=== PATIENT | female | born 1995 | race Caucasian/White ===

== ENCOUNTER → 2019-01-04 14:12 | Outpatient (CLI) | payer OTHER, SELFPAY ==
[2019-01-04 10:47] VITALS: BMI 35.4
== END ==
PROVIDERS: Family Provider Family Medicine; PCP Family Medicine; Referring Provider Physician Assistant Surgical; Visit Provider Physician Assistant Surgical
DX: J02.9 Acute pharyngitis, unspecified (principal)
CPT/HCPCS: 87081

== ENCOUNTER → 2020-08-02 | Outpatient (CLI) | payer OTHER, SELFPAY ==
[2020-08-02 12:15] VITALS: BMI 34.5
== END | disposition home or self-care (01) ==
PROVIDERS: PCP Family Medicine; Referring Provider Nurse Practitioner Family; Visit Provider Nurse Practitioner Family
DX: J20.9 Acute bronchitis, unspecified (principal)
CPT/HCPCS: 87070; 87077

== ENCOUNTER → 2020-10-07 | Outpatient (CLI) | payer OTHER, SELFPAY ==
[2020-10-07 08:16] VITALS: BMI 34.5
[2020-10-09 03:07] LABS: Chlamydia By Nucleic Acid AMP Negative (Negative)
[2020-10-09 08:28] LABS: Gonococcus By Nucleic Acid AMP Negative (Negative)
[2020-10-10 15:17] LABS: HPV Reflexed? NOT INDICATED
== END | disposition home or self-care (01) ==
LOC: LABSPEC 13:07
PROVIDERS: PCP Family Medicine; Visit Provider Nurse Practitioner Women's Health
DX: Z12.4 Encounter for screening for malignant neoplasm of cervix (principal); Z11.3 Encounter for screening for infections with a predominantly sexual mode of transmission; N89.8 Other specified noninflammatory disorders of vagina
CPT/HCPCS: 87070; 87205; 87491; 87591; 88175; G0145

== ENCOUNTER → 2020-10-09 14:53 | Outpatient (CLI) | payer OTHER, SELFPAY ==
[2020-10-07 08:16] VITALS: BMI 34.5
--- NOTE | 2020-10-09 14:55 | US_ITS ---
STUDY: ULTRASOUND TRANSVAGINAL CLINICAL: Female, 25 years old. pain TECHNIQUE: Transvaginal COMPARISON: None. FINDINGS: Normal uterine size measuring 7.6 cm in maximal craniocaudal dimension. There are no myometrial masses. Normal endometrial thickness measuring 10 mm. There are no endometrial masses, and there is no fluid in the endometrial cavity. Normal uterine cervix. The right ovary measures 5.0 x 5.1 x 3.8 cm with a 4.2 x 4.6 x 3.2 cm simple cyst. Normal DOPPLER flow. No adnexal masses. The left ovary is 2.9 x 3.4 x 2.5 cm with normal DOPPLER flow. There are no left adnexal masses. Mild free fluid of the pelvis. Unremarkable urinary bladder. US/Pelvic (Non ) IMPRESSION: 4.2 x 4.6 x 3.2 cm simple cyst of the right ovary with mild free fluid of the pelvis. Normal DOPPLER flow. Normal uterus and left ovary with no additional adnexal masses. Electronically Signed: Janet Peterson MD at 16:29 EDT , Service support ,
--- NOTE | 2020-10-09 14:55 | US_ITS ---
STUDY: ULTRASOUND TRANSVAGINAL CLINICAL: Female, 25 years old. pain TECHNIQUE: Transvaginal COMPARISON: None. FINDINGS: Normal uterine size measuring 7.6 cm in maximal craniocaudal dimension. There are no myometrial masses. Normal endometrial thickness measuring 10 mm. There are no endometrial masses, and there is no fluid in the endometrial cavity. Normal uterine cervix. The right ovary measures 5.0 x 5.1 x 3.8 cm with a 4.2 x 4.6 x 3.2 cm simple cyst. Normal DOPPLER flow. No adnexal masses. The left ovary is 2.9 x 3.4 x 2.5 cm with normal DOPPLER flow. There are no left adnexal masses. Mild free fluid of the pelvis. Unremarkable urinary bladder. US/Transvaginal Non- IMPRESSION: 4.2 x 4.6 x 3.2 cm simple cyst of the right ovary with mild free fluid of the pelvis. Normal DOPPLER flow. Normal uterus and left ovary with no additional adnexal masses. Electronically Signed: Janet Peterson MD at 16:29 EDT , Service support ,
== END ==
PROVIDERS: PCP Family Medicine; Referring Provider Nurse Practitioner Women's Health; Visit Provider Nurse Practitioner Women's Health
DX: N83.291 Other ovarian cyst, right side (principal); R10.2 Pelvic and perineal pain
CPT/HCPCS: 76830; 76856; 93976

== ENCOUNTER → 2020-11-06 16:25 | Outpatient (CLI) | payer OTHER, SELFPAY ==
[2020-10-07 08:16] VITALS: BMI 34.5
--- NOTE | 2020-11-06 16:28 | US_ITS ---
HISTORY: cyst-F/U EXAMINATION: US Transvaginal Non-OB TECHNIQUE: Transvaginal (for optimal evaluation of the adnexa) pelvic ultrasound was performed. Grayscale, spectral waveform, and color flow Doppler evaluation of the adnexa. COMPARISON: 10/09/2020 FINDINGS: UTERUS: Anteverted uterus 7.0 x 5.4 x 4.0 cm with normal myometrial appearance. Homogeneous 12 mm endometrial stripe. RIGHT OVARY: 3.5 x 2.4 x 1.6 cm. Multiple normal small follicles. Preserved Doppler vascular flow. LEFT OVARY: 3.3 x 4.7 x 2.8 cm. Complex 2.2 cm physiologic cyst. Preserved Doppler vascular flow. FREE FLUID: Small volume anechoic cul-de-sac free fluid. BLADDER: Anechoic. Volume 55 mL. US/Transvaginal Non- IMPRESSION: Left ovarian 2.2 cm complex physiologic cyst. Interval resolution of previous large right ovarian cyst. Trace physiologic fluid in the cul-de-sac. Unremarkable uterus with homogeneous endometrial stripe within normal limits for age. at 0137 Reported and signed by: Javon Reed MD Electronically Signed: Javon Reed MD at 1:35 EDT Tel , Service support ,
== END ==
PROVIDERS: PCP Family Medicine; Referring Provider Nurse Practitioner Women's Health; Visit Provider Nurse Practitioner Women's Health
DX: R10.2 Pelvic and perineal pain (principal)
CPT/HCPCS: 76830

== ENCOUNTER → 2020-11-20 08:45 | Outpatient (CLI) | payer OTHER, SELFPAY ==
[2020-11-20 08:06] VITALS: BMI 34.5
[2020-11-20 11:15] LABS: HIV - WCH Non-Reactive (Nonreactive); Syphilis Antibodies Non-reactive
[2020-11-21 16:07] LABS: HCV Quant. RNA PCR HCV Not Detected IU/mL (.); HEPATITIS B SURFACE AG Negative (Negative); Hepatitis A IgM Antibody Negative (Negative); Hepatitis B Core AB IgM Negative (Negative)
[2020-11-21 16:23] LABS: Hep C Antibodies 0.1 s/co ratio (0.0-0.9)
[2020-11-23 20:09] LABS: Chlamydia By Nucleic Acid AMP Negative (Negative)
[2020-11-23 20:21] LABS: Gonococcus By Nucleic Acid AMP Negative (Negative)
== END ==
PROVIDERS: PCP Family Medicine; Referring Provider Obstetrics & Gynecology; Visit Provider Obstetrics & Gynecology
DX: N89.8 Other specified noninflammatory disorders of vagina (principal); Z11.3 Encounter for screening for infections with a predominantly sexual mode of transmission
CPT/HCPCS: 36415; 80074; 86703; 86780; 87070; 87205; 87491; 87522; 87591

== ENCOUNTER → 2021-09-14 | Outpatient (CLI) | payer BC, SELFPAY ==
[2021-09-13 16:49] LABS: Chlamydia Trachomatis by PCR Negative (Negative); Neisserai gonorrhoeae by PCR Negative (Negative); Probe Check PASS; Sample Adequacy Control PASS; Specimen Processing Control PASS
== END | disposition home or self-care (01) ==
LOC: LABSPEC 10:24
PROVIDERS: PCP Family Medicine; Visit Provider Nurse Practitioner Women's Health
DX: Z11.3 Encounter for screening for infections with a predominantly sexual mode of transmission (principal)
CPT/HCPCS: 87491; 87591

== ENCOUNTER → 2022-04-14 | Outpatient (CLI) | payer BC, SELFPAY ==
[2022-04-18 17:07] LABS: Clam <0.10 kU/L (Class 0); Codfish <0.10 kU/L (Class 0); Corn <0.10 kU/L (Class 0); Crab <0.10 kU/L (Class 0); Egg, White <0.10 kU/L (Class 0); Milk (Cow) 0.17 kU/L (Class 0/I); Peanut <0.10 kU/L (Class 0); SCALLOP <0.10 kU/L (Class 0); SESAME SEED <0.10 kU/L (Class 0); Shrimp <0.10 kU/L (Class 0); Soybean <0.10 kU/L (Class 0); Walnut, (Food) <0.10 kU/L (Class 0); Wheat <0.10 kU/L (Class 0)
[2022-04-18 20:42] LABS: Lobster <0.10 kU/L (Class 0)
== END | disposition home or self-care (01) ==
LOC: LAB 09:41
PROVIDERS: PCP Family Medicine; Referring Provider Otolaryngology; Visit Provider Otolaryngology
DX: T78.40XA Allergy, unspecified, initial encounter (principal)
CPT/HCPCS: 36415; 86003

== ENCOUNTER → 2022-11-23 | Outpatient (CLI) | payer BC, SELFPAY ==
[2022-11-23 11:40] LABS: Bacteria 0 SEEN /hpf (None Seen); Mucous, Urine 0 SEEN /hpf (<or=2+); Red Blood Cells-Urine 0 SEEN /hpf (0-5)
[2022-11-23 15:11] LABS: Absolute Lymphocyte Count 1.92 X10^3/uL (0.83-4.51); Absolute Neutrophil Count 3.3 X10^3/uL (2.0-7.7); Basophil# 0.04 X10^3/uL; Basophil% 0.7 % (0-1); Eosinophil# 0.14 X10^3/uL; Eosinophils% 2.4 % (0-5); Hematocrit 38.1 % (37-47); Hemoglobin 12.2 g/dL (12.0-15.0); Lymphocyte # 1.92 X10^3/ul (0.83-4.51); Mean Corpuscular Hgb 29.4 pg (27.0-32.0); Mean Corpuscular Volume 91.8 fL (81-99); Mean Platelet Vol. 12.3 fl (6.2-12.0); Monocyte# 0.41 X10^3/uL; Monocyte% 7.1 % (0-10); NRBC Flagged by Analyzer 0 % (0-5); Neutrophil # 3.26 X10^3/uL (2.7-7.7); Neutrophil % 56.1 % (47-70); Platelet Count 246 K/mm3 (150-450); RBC Distribution Width CV 12.5 % (11.6-14.6); RBC Distribution Width SD 42.1 fl (35.1-43.9); Red Blood Count 4.15 M/mm3 (4.2-5.4); White Blood Count 5.8 K/mm3 (4.4-11.0)
[2022-11-23 15:29] LABS: Color, Urine Yellow (Yellow); Glucose, Dipstick Normal (Normal); Hemoglobin A1c 4.8 % (3.8-5.6); Ketone-Dipstick Negative (Negative); Leukocyte Esterase-Dipstick Negative /ul (Negative); Nitrite-Dipstick Negative (Negative); Occult Blood-Urine 10 /ul (Negative); Protein-Dipstick Negative (Negative); Specific Gravity, Urine 1.015 (1.002-1.030); Urine Bilirubin Dipstick Negative (Negative); Urine Clarity Clear (Clear); Urine Urobilinogen Normal (Normal)
[2022-11-23 15:42] LABS: AST(SGOT) 13 U/L (15-37); Alanine Aminotransfer ALT/SGPT 18 U/L (13-56); Albumin, Serum 3.7 g/dL (3.2-5.0); Alkaline Phosphatase 42 U/L (45-117); Anion Gap 7 (5-15); BUN 10 mg/dL (7-18); BUN/Creat Ratio 13.8 RATIO (10-20); Chloride 105 mmol/L (98-107); Cholesterol 174 mg/dL (200); Creatinine, Serum 0.72 mg/dL (0.55-1.02); EST Glomerular Filtration Rate 104 mL/min (>60); Est Glom Filt Rate - Afr Amer 126 mL/min (>60); Ferritin 17 ng/mL (8-252); Globulin 3.6 g/dL (2.2-4.2); Glucose 81 mg/dL (74-106); High Density Lipoprotein 73 mg/dL; Potassium 3.6 mmol/L (3.5-5.1); Protein, Total 7.3 g/dL (6.4-8.2); Sodium Level 137 mmol/L (136-145); Thyroid Stim Hormone (TSH) 0.93 uIU/mL (0.358-3.74); Triglycerides 80 mg/dL; Very Low Density Lipoprotein 16 mg/dL (5-40)
[2022-11-23 15:44] LABS: Squamous Epithelial Cells - UA 0-5 SEEN /hpf (5-10); White Blood Cells 0-5 SEEN /hpf (0-5)
[2022-11-23 16:51] LABS: HIV - WCH Non-Reactive (Nonreactive); Syphilis Antibodies Non-reactive
== END | disposition home or self-care (01) ==
LOC: MFPLAB 11:38
PROVIDERS: PCP Family Medicine; Visit Provider Family Medicine
DX: N93.9 Abnormal uterine and vaginal bleeding, unspecified (principal); Z11.3 Encounter for screening for infections with a predominantly sexual mode of transmission
CPT/HCPCS: 36415; 80053; 80061; 81001; 82728; 83036; 84443; 85025; 86703; 86780; 87491; 87591

== ENCOUNTER → 2022-11-24 | Outpatient (CLI) | payer BC, SELFPAY ==
--- NOTE | 2022-11-24 17:04 | US_ITS ---
INDICATION: Abnormal uterine bleeding EXAMINATION: US Transvaginal Non-OB TECHNIQUE: Transvaginal (for optimal evaluation of the adnexa) pelvic ultrasound was performed. Grayscale, spectral waveform, and color flow Doppler evaluation of the adnexa. COMPARISON: Pelvic ultrasound from 11/06/2020 FINDINGS: UTERUS: Anteverted. The uterus measures 7.5 x 3.7 x 5.7 cm. No uterine mass demonstrated. The endometrial stripe measures 6 mm in AP diameter which is within normal limits. Small amount of fluid within endometrial cavity. There are few punctate calcifications at cervix. RIGHT OVARY: Right ovary measures 2.7 x 1.2 x 2.3 cm. Small ovarian follicles with no large or complex cyst. Normal right ovarian color Doppler flow and spectral Doppler waveforms. LEFT OVARY: Left ovary measures 2.9 x 1.8 x 2 cm. Small ovarian follicles with no large or complex cyst. Normal left ovarian color Doppler flow and spectral Doppler waveforms. FREE FLUID: Small amount of free fluid within posterior cul-de-sac. US/Transvaginal Non- IMPRESSION: 1. Small amount of fluid within endometrial cavity with no endometrial lesion or pathologic endometrial thickening demonstrated. 2. Punctate cervical calcifications 3. Small amount of physiologic fluid within pelvis Electronically Signed: Cosme Crowder MD at 7:45 EDT ,
== END | disposition home or self-care (01) ==
LOC: US 17:03
PROVIDERS: PCP Family Medicine; Referring Provider Family Medicine; Visit Provider Family Medicine
DX: N93.9 Abnormal uterine and vaginal bleeding, unspecified (principal)
CPT/HCPCS: 76830